=== PATIENT | female | born 1995 | race Caucasian/White ===

== ENCOUNTER 2018-10-17 16:45 | Inpatient (IN) | payer BC, OTHER ==
[~2018-10-17] VITALS: Ht 182.9 cm; Wt 83.7 kg
[2018-10-17 17:19] LABS: HEMATOCRIT 41.6 % (36.0-47.0); HEMOGLOBIN 14.4 g/dl (12.0-15.5); MEAN CORPUSCULAR HEMOGLOBIN 30.4 pg (27.0-33.0); MEAN CORPUSCULAR HGB CONC 34.6 g/dl (32.0-36.5); MEAN CORPUSCULAR VOLUME 87.8 fl (80.0-96.0); PLATELET COUNT, AUTOMATED 195 10^3/uL (150-450); RED BLOOD COUNT 4.74 10^6/uL (4.00-5.40); WHITE BLOOD COUNT 7.5 10^3/uL (4.0-10.0)
[2018-10-17] MEDS ORDERED: TRI-TAB PO (17:36)
[2018-10-17] MEDS ORDERED: LEXA1TAB2 PO (17:36)
[2018-10-17 17:45] LABS: AMPHETAMINES LEVEL URINE NEGATIVE (NEGATIVE); BARBITURATES URINE NEGATIVE (NEGATIVE); BENZODIAZEPINES URINE NEGATIVE (NEGATIVE); CANNABINOIDS URINE NEGATIVE (NEGATIVE); COCAINE METABOLITE URINE NEGATIVE (NEGATIVE); HCG, SERUM QUALITATIVE NEGATIVE (NEGATIVE); METHADONE URINE NEGATIVE (NEGATIVE); OPIATES URINE NEGATIVE (NEGATIVE); PHENCYCLIDINE URINE NEGATIVE (NEGATIVE)
[2018-10-17 17:57] LABS: ACETAMINOPHEN LEVEL < 2.0 UG/ML (10.0-30.0); ALBUMIN 3.7 GM/DL (3.2-5.2); ALT/SGPT 19 U/L (12-78); BILIRUBIN,DIRECT 0.1 MG/DL (0.0-0.2); BILIRUBIN,TOTAL 0.2 MG/DL (0.2-1.0); BLOOD UREA NITROGEN 10 MG/DL (7-18); CALCIUM LEVEL 9.4 MG/DL (8.5-10.1); CARBON DIOXIDE LEVEL 27 MEQ/L (21-32); CHLORIDE LEVEL 109 MEQ/L (98-107); CREATININE FOR GFR 0.84 MG/DL (0.55-1.30); ETHYL ALCOHOL (ETHANOL) < 0.003 % (0.000-0.010); GLOMERULAR FILTRATION RATE > 60.0 (>60); GLUCOSE, FASTING 82 MG/DL (70-100); SALICYLATE LEVEL < 1.7 MG/DL (5.0-30.0); SODIUM LEVEL 143 MEQ/L (136-145); TOTAL PROTEIN 7.7 GM/DL (6.4-8.2)
[2018-10-17] MEDS ORDERED: MOM 30ML SUSPENSION UDC PO PRN (18:45)
[2018-10-17] MEDS ORDERED: traZODone 50 MG TAB PO PRN (18:45)
[2018-10-17] MEDS ORDERED: ACETAMINOPHEN TAB 650MG DOSE (2X325MG) PO PRN (18:45)
[2018-10-17] MEDS ORDERED: MAALOX 30 ML SUSP *UDC PO PRN (18:45)
[2018-10-17 19:02] VITALS: BP 127/73
[2018-10-18 06:00] VITALS: BP 103/57
[2018-10-18] MEDS: ESCITALOPRAM OXALATE 10 MG TAB (LEXAPRO) PO SCH (08:10)
[2018-10-18] MEDS: DIVALPROEX 250 MG TAB PO SCH ×2 (10:57→21:26)
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
--- NOTE | 2018-10-18 14:04 | REP ---
Clinical: Foreign body. Technique: AP and lateral views of the left foot. Findings: Osseous structures and joint spaces are intact and normal. The soft tissues are unremarkable. No subcutaneous emphysema or foreign body identified. Impression: Normal examination. No foreign body identified. Electronically Signed by Matt Bolivar MD 10/18/2018 01:03 P
--- NOTE | 2018-10-18 15:59 | HPEPDOC ---
General Date of Admission Oct 17, 2018 at 18:34 Date of Service: Oct 18, 2018 Chief Complaint The patient is a 23-year-old female admitted with a reason for visit of Unspecified Depressive D/O. Source: Patient, Old records Exam Limitations: No limitations Severity: Mild History of Present Illness 23 year old female with PMH of Asthma, anxiety admitted to the Psych service for depression with suicidal ideas, aggressive behavior and generalized anxiety. I am seeing her for medical history and physical . She denied any chest pain, cough or sob , denied any abdominal pain , nausea or vomiting or diarrhea, denied any fever or chills. She did say she stepped on a piece of glass with her left foot about a week ago. Today she s complaining of some soreness at the bottom of her left foot near the heel, about 1/10 in intensity, no radiation, dull aching in nature mainly feels when she puts pressure on that foot. Home Medications Scheduled Escitalopram Oxalate (Lexapro) 20 Mg Tablet, 20 MG PO DAILY, (Reported) Norgestimate-Ethinyl Estradiol (Tri-Sprintec Tablet) 1 Each Tablet, 1 TAB PO DAILY, (Reported) Allergies Coded Allergies: No Known Allergies (Verified , 07/06/07) Past Medical History Medical History Asthma, Anxiety and depression Surgical History None Family History Significant Family History: Heart disease (father irregular heart beat. ) Social History * Smoker: Denies Alcohol: Denies Drugs: marijuana A-FIB/CHADSVASC A-FIB History Current/History of A-Fib/PAF?: No Review of Systems Constitutional: Denies: Chills, Fever, Night Sweats Eyes: Denies: Pain, Vision change ENT: Denies: Head Aches, Ear Pain, Dysphagia Skin: Denies: Rash, Lesions, Breakdown Pulmonary: Denies: Dyspnea, Cough Cardiovascular: Denies: Chest Pain, Palpitations, Orthopnea, Paroxysmal Noc. Dyspnea, Edema, Lt Headedness, Other Symptoms Gastrointestinal: Denies: Nausea, Vomiting, Abdominal Pain, Diarrhea Genitourinary: Denies: Dysuria, Frequency, Incontinence, Retention Hematologic: Denies: Bruising, Bleeding Excessively Musculoskeletal: Reports: Foot Pain; Denies: Neck Pain, Back Pain, Joint Pain, Muscle Pain, Spasms Physical Examination General Exam: Positive: Alert, No Acute Distress Eye Exam: Positive: PERRLA, Conjunctiva & lids normal, EOMI; Negative: Sclera icteric ENT Exam: Positive: Atraumatic, Mucous membr. moist/pink, Pharynx Normal Neck Exam: Positive: Supple; Negative: JVD, thyromegaly Chest Exam: Positive: Clear to auscultation, Normal air movement Heart Exam: Positive: Rate Normal, Regular Rhythm, Normal S1, Normal S2; Negative: Murmurs, Rubs Abdomen Exam: Positive: Normal bowel sounds, Soft; Negative: Tenderness, Hepatospenomegaly Extremity Exam: Positive: Normal pulses; Negative: Clubbing, Cyanosis, Edema Skin Exam: Positive: Other skin issue (left foot planter aspect area of hardness with minor erythema surrounding it on the lateral side just in front of the heel at the region where she stepped on glass.) Vital Signs Vital Signs Date Time Temp Pulse Resp B/P (MAP) Pulse Ox O2 Delivery O2 Flow Rate FiO2 10/18/18 06:00 98.7 65 12 103/57 (72) 10/17/18 16:46 99 Room Air Laboratory Data Labs 24H Laboratory Tests 2 10/17/18 17:03: Nucleated Red Blood Cells % (auto) 0.0, Anion Gap 7L, Glomerular Filtration Rate > 60.0, Calcium Level 9.4, Aspartate Amino Transf (AST/SGOT) 11, Alanine Amino transferase (ALT/SGPT) 19, Alkaline Phosphatase 60, Total Bilirubin 0.2, Direct Bilirubin 0.1, Total Protein 7.7, Albumin 3.7, Albumin/Globulin Ratio 0.93L, Thyroid Stimulating Hormone (TSH) 1.410, Human Chorionic Gonadotropin, Qual NEGATIVE, Salicylates Level < 1.7L, Urine Amphetamines Screen NEGATIVE, Urine Benzodiazepines Screen NEGATIVE, Urine Opiates Screen NEGATIVE, Urine Methadone Screen NEGATIVE, Acetaminophen Level < 2.0L, Urine Barbiturates Screen NEGATIVE, Urine Phencyclidine Screen NEGATIVE, Urine Cocaine Metabolite Screen NEGATIVE, Urine Cannabinoids Screen NEGATIVE, Ethyl Alcohol Level < 0.003 CBC/BMP Laboratory Tests 10/17/18 17:03 Red Blood Count 4.74, Mean Corpuscular Volume 87.8, Mean Corpuscular Hemoglobin 30.4, Mean Corpuscular Hemoglobin Concent 34.6, Red Cell Distribution Width 12.2 Assessment/Plan 23 year old female with PMH of asthma and anxiety admitted to the Psych service for depression with suicidal ideas, aggressive behavior and generalized anxiety. I am seeing her for medical history and physical . She stepped on a piece of glass with her left foot about a week ago. Asthma no exacerbation will make her inhaler available Foreign body in left foot Xray of the foot did not reveal any foreign body. she stepped on a piece of glass. Depression./Anxiety as per psychiatry DVT prophylaxis not needed as frequently ambulatory There are no active medical issues at this time. Please reconsult us if needed Plan / VTE VTE Prophylaxis Ordered?: No SHERON HERNANDEZ MD Oct 18, 2018 11:33
[2018-10-18] MEDS: [UNRECOGNIZED DRUG - OTHER] PO SCH (16:12)
[2018-10-18 18:08] VITALS: BP 119/81
[2018-10-19 06:00] VITALS: BP 98/57
[2018-10-19] MEDS: [UNRECOGNIZED DRUG - OTHER] PO SCH (08:13)
[2018-10-19] MEDS: ESCITALOPRAM OXALATE 10 MG TAB (LEXAPRO) PO SCH (08:13)
[2018-10-19] MEDS: DIVALPROEX 250 MG TAB PO SCH (08:13)
[2018-10-19] MEDS: hydrOXYzine 25 MG TAB PO PRN ×2 (10:27→19:42)
--- NOTE | 2018-10-19 12:21 | MHIPNPDOC ---
[facility] Progress Note Progress Note Inpatient Progress Note Cristobal Noonan Female Date of : N/A Date of Service: 10/19/2018 History of Present Illness The patient is a 23-year-old woman who presented over the weekend with significant dysregulation in her mood as well as homicidal thoughts towards others around her. She has a history of reported mood variation that is possibly bipolar with no significant psychiatric treatment in the past. Interval History The patient is met with today where she describes that she is feeling no better on the Depakote and that she had been on Lexapro prior. She notes that her mood variation is a significant problem for her at home as she will alternate moods over several days at a time where she notes her boyfriend is concerned about her safety around others. She has had no issues on the unit as of yet. She has been attending groups relatively regularly. Review Of Systems As above. Psychotherapy None on this visit. Vital Signs Reviewed. Mental Status Examination General: Well dressed with good hygiene Speech: Spontaneous and fluid Thought processes: Linear and logical MSK: Smooth and coordinated gait, no signs of tremors or involuntary orofacial movements Thought content: Future orientated Abstract reasoning, and computation: Intact Description of associations: Intact Description of abnormal or psychotic thoughts: Admits to suicidal thoughts. Denies homicidal ideation. Denies auditory or visual hallucinations. Does not appear to be responding to internal stimuli and does not appear to be endorsing any bizarre or paranoid ideation. Judgment: Poor Insight: Poor Orientation: Alert and orientated 3 Cognition: Grossly normal Recent and remote memory: Intact Attention span and concentration: Intact Fund of knowledge: Adequate Mood: "Fine" Affect: Anxious with a constricted range. Diagnoses Bipolar disorder, unspecified. Borderline personality disorder. Assessment and Plan The patient is a 23-year-old woman with no significant past psychiatric history presents due to secondary mood variation, it is unclear whether bipolar or borde rline. She will likely need an effective mood stabilizer. Depakote at this time is problematic. Discussed the risks, benefits and potential side effects of treatment with Depakote versus Abilify as well as informed her of potential teratogenic effects with Depakote. The patient has elected to start Abilify and discontinue Depakote at this time. Discontinue Depakote and start Abilify 2.5 mg mg daily. Continue home antidepressant at current dose. If the patient does not continue to improve, the antidepressant could be a potential cause for inducing a mixed episode which is not entirely clear at this time. Disposition The patient will need further inpatient admission in order to treat her extreme mood variation and risk for suicide. Time Spent 15 minutes [id number]. Vital Signs Vital Signs Date Time Temp Pulse Resp B/P (MAP) Pulse Ox O2 Delivery O2 Flow Rate FiO2 10/19/18 06:00 98.7 74 16 98/57 (71) 10/17/18 16:46 99 Room Air Current Medications Current Medications Acetaminophen (Tylenol Tab) 650 mg Q6HP PRN PO HEADACHE or DISCOMFORT; Start 10/17/18 at 18:45 Al Hydrox/Mg Hydrox/Simethicone (Mylanta) 30 ml Q4HP PRN PO HEARTBURN/INDIGESTION; Start 10/17/18 at 18:45 Divalproex Sodium (Depakote) 250 mg BID PO Last administered on 10/19/18 08:13; Start 10/18/18 at 09:00 Escitalopram Oxalate (Lexapro) 20 mg DAILY PO Last administered on 10/19/18 08:13; Start 10/18/18 at 09:00 Home Med (Med Rec Complete!) ASDIRECTED XX ; Start 10/17/18 at 18:30; Stop 10/17/18 at 18:33; Status DC Hydroxyzine HCl (Atarax) 25 mg Q6HP PRN PO ANXIETY Last administered on 10/19/18at 10:27; Start 10/18/18 at 11:15 Magnesium Hydroxide (Milk Of Magnesia) 30 ml DAILYPRN PRN PO CONSTIPATION; Start 10/17/18 at 18:45 Miscellaneous (Unresolved Patient Own Med Order) SEE LABEL COMMENTS DAILY XX ; Start 10/18/18 at 09:00; Stop 10/18/18 at 12:38; Status DC Patient Own Medication (Patient'S Own Med) tri-spirintec tablet take 1 tab... DAILY PO Last administered on 10/19/18 08:13; Start 10/18/18 at 09:00 Trazodone HCl (Desyrel) 50 mg QHSP PRN PO INSOMNIA Last administered on 10/18/18at 21:26; Start 10/17/18 at 18:45 Allergies Coded Allergies: No Known Allergies (Verified , 07/06/07) LESIA PRINGLE DO Oct 19, 2018 12:21
[2018-10-19 18:00] VITALS: BP 109/60
[2018-10-20 06:43] VITALS: BP 108/65
[2018-10-20] MEDS: [UNRECOGNIZED DRUG - OTHER] PO SCH (08:22)
[2018-10-20] MEDS: PILL CUTTER 1 EACH XX PRN (08:23)
[2018-10-20] MEDS: ESCITALOPRAM OXALATE 10 MG TAB (LEXAPRO) PO SCH (08:23)
[2018-10-20] MEDS: hydrOXYzine 25 MG TAB PO PRN ×2 (10:22→17:15)
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
[2018-10-20 18:00] VITALS: BP 105/56
[2018-10-21 06:49] VITALS: BP 106/71
[2018-10-21] MEDS: ESCITALOPRAM OXALATE 10 MG TAB (LEXAPRO) PO SCH (08:36)
[2018-10-21] MEDS: PILL CUTTER 1 EACH XX PRN (08:36)
[2018-10-21] MEDS: [UNRECOGNIZED DRUG - OTHER] PO SCH (08:36)
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
[2018-10-21 18:00] VITALS: BP 127/62
[2018-10-21] MEDS: hydrOXYzine 25 MG TAB PO PRN (21:15)
[2018-10-22 06:48] VITALS: BP 99/56
[2018-10-22] MEDS: PILL CUTTER 1 EACH XX PRN (08:10)
[2018-10-22] MEDS: hydrOXYzine 25 MG TAB PO PRN (08:10)
[2018-10-22] MEDS: [UNRECOGNIZED DRUG - OTHER] PO SCH (08:10)
[2018-10-22] MEDS: ESCITALOPRAM OXALATE 10 MG TAB (LEXAPRO) PO SCH (08:11)
[2018-10-22] MEDS ORDERED: TRAZ-252 PO (08:54)
[2018-10-22] MEDS ORDERED: ABIL1TAB11 PO (08:54)
[2018-10-22] MEDS ORDERED: LEXA1TAB2 PO (08:54)
[2018-10-22] MEDS ORDERED: HYDR-3363 PO (08:54)
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
== END 2018-10-22 13:00 | disposition home or self-care (01) | DRG 751 ==
LOC: M ED 16:45 → M ED INP 18:34 → M PSY 18:55
PROVIDERS: ADMIT Psychiatry & Neurology Psychiatry; ATTEND Psychiatry & Neurology Psychiatry
DX: F32.2 Major depressive disorder, single episode, severe without psychotic features (principal); F60.3 Borderline personality disorder; F41.0 Panic disorder [episodic paroxysmal anxiety]; F43.10 Post-traumatic stress disorder, unspecified; Z62.810 Personal history of physical and sexual abuse in childhood; J45.909 Unspecified asthma, uncomplicated; Z79.899 Other long term (current) drug therapy

== ENCOUNTER 2018-11-18 14:03 | Emergency (ER) | payer BC ==
[~2018-11-18] VITALS: Ht 182.9 cm; Wt 86.6 kg
[~2018-11-18 14:03] MED LIST changes: -KETO10TAB PO
[2018-11-18 15:31] LABS: BASO # 0.1 10^3/uL (0.0-0.2); BASO % 0.7 % (0.0-1.0); EOS # 0.3 10^3/uL (0.0-0.50); EOS % 3.3 % (0.0-3.0); HEMATOCRIT 41.6 % (36.0-47.0); HEMOGLOBIN 14.1 g/dl (12.0-15.5); LYMPH % 22.8 % (24.0-44.0); MEAN CORPUSCULAR HEMOGLOBIN 30.6 pg (27.0-33.0); MEAN CORPUSCULAR HGB CONC 33.9 g/dl (32.0-36.5); MEAN CORPUSCULAR VOLUME 90.2 fl (80.0-96.0); MONO # 0.7 10^3/uL (0.0-0.8); MONO % 7.8 % (0.0-5.0); NEUTROPHILS # 5.8 10^3/uL (1.8-7.7); NEUTROPHILS % 65.1 % (36.0-66.0); PLATELET COUNT, AUTOMATED 191 10^3/uL (150-450); RED BLOOD COUNT 4.61 10^6/uL (4.00-5.40); WHITE BLOOD COUNT 8.9 10^3/uL (4.0-10.0)
[2018-11-18 15:48] LABS: BLOOD UREA NITROGEN 9 MG/DL (7-18); CALCIUM LEVEL 8.7 MG/DL (8.5-10.1); CARBON DIOXIDE LEVEL 30 MEQ/L (21-32); CHLORIDE LEVEL 107 MEQ/L (98-107); CREATININE FOR GFR 0.68 MG/DL (0.55-1.30); GLOMERULAR FILTRATION RATE > 60.0 (>60); GLUCOSE, FASTING 71 MG/DL (70-100); POTASSIUM SERUM 3.6 MEQ/L (3.5-5.1); SODIUM LEVEL 141 MEQ/L (136-145)
[2018-11-18 16:29] LABS: HCG, SERUM QUANTITATIVE < 1.0 MIU/ML
[2018-11-18] MEDS ORDERED: KETO10TAB PO (16:40)
[2018-11-18 16:44] VITALS: BP 108/56
--- NOTE | 2018-11-19 07:37 | REP ---
PELVIC ULTRASOUND: Real-time sonographic evaluation of the pelvis performed utilizing transabdominal and endovaginal technique. Urinary bladder is collapsed. Uterus measures 8.8 x 3.9 x 5.2 cm. Endometrial thickness is 3 mm. There is no endometrial fluid collection. The right ovary measures 3.7 x 1.5 x 2.6 cm. The left ovary is enlarged measuring 5.5 x 3.8 x 4.5 cm. There is a left ovarian cyst, 5.0 x 3.6 x 3.8 cm. There is no evidence of ovarian torsion. There is no free fluid. IMPRESSION: Left ovarian cyst measures 5 cm in maximum diameter. No torsion or free fluid. Followup ultrasound in 2 months. Electronically Signed by Home Munoz MD 11/19/2018 10:10 A
--- NOTE | 2018-11-19 14:50 | ED PDOC ---
Post-Departure Follow-Up dr degroot faxed formal report of pelvic us for fu Sachi Zafar MD Nov 19, 2018 14:50
== END 2018-11-18 16:45 | disposition home or self-care (01) ==
LOC: M ED 14:03
DX: N83.202 Unspecified ovarian cyst, left side (principal); F31.9 Bipolar disorder, unspecified; F41.9 Anxiety disorder, unspecified; F60.9 Personality disorder, unspecified; Z79.899 Other long term (current) drug therapy

== ENCOUNTER → 2018-11-18 | Outpatient (REF) | payer BC ==
[~2018-11-18] MED LIST: ABIL1TAB11 PO; HYDR-3363 PO; KETO10TAB PO; LEXA1TAB2 PO; TRAZ-252 PO; TRI-TAB PO
[2018-11-18 22:49] LABS: CHLAMYDIA DNA AMPLIFICATION NEGATIVE (NEGATIVE); GC DNA AMPLIFICATION NEGATIVE (NEGATIVE)
== END ==
LOC: M SFHCLERA 14:01
PROVIDERS: ATTEND Physician Assistant
DX: R10.32 Left lower quadrant pain (principal)

== ENCOUNTER 2018-12-12 15:50 | Emergency (ER) | payer BC ==
[~2018-12-12] VITALS: Ht 182.9 cm; Wt 88.6 kg
[~2018-12-12 15:50] MED LIST changes: +KETO10TAB PO
[2018-12-12] MEDS ORDERED: ESCI10TA2 PO (16:42)
[2018-12-12] MEDS ORDERED: SERT25TA85 PO (16:43)
[2018-12-12] MEDS ORDERED: OXYC1TAB23 PO (16:44)
[2018-12-12 16:45] LABS: HEMATOCRIT 38.1 % (36.0-47.0); HEMOGLOBIN 13.2 g/dl (12.0-15.5); MEAN CORPUSCULAR HEMOGLOBIN 30.8 pg (27.0-33.0); MEAN CORPUSCULAR HGB CONC 34.6 g/dl (32.0-36.5); MEAN CORPUSCULAR VOLUME 88.8 fl (80.0-96.0); PLATELET COUNT, AUTOMATED 146 10^3/uL (150-450); RED BLOOD COUNT 4.29 10^6/uL (4.00-5.40)
[2018-12-12] MEDS ORDERED: AMOX500C PO (16:46)
[2018-12-12] MEDS ORDERED: VENTAER INH (16:50)
[2018-12-12 17:07] LABS: AMPHETAMINES LEVEL URINE NEGATIVE (NEGATIVE); BARBITURATES URINE NEGATIVE (NEGATIVE); BENZODIAZEPINES URINE NEGATIVE (NEGATIVE); CANNABINOIDS URINE NEGATIVE (NEGATIVE); COCAINE METABOLITE URINE NEGATIVE (NEGATIVE); METHADONE URINE NEGATIVE (NEGATIVE); OPIATES URINE NEGATIVE (NEGATIVE); PHENCYCLIDINE URINE NEGATIVE (NEGATIVE)
[2018-12-12 17:08] LABS: HCG, SERUM QUALITATIVE NEGATIVE (NEGATIVE)
[2018-12-12 17:23] LABS: ACETAMINOPHEN LEVEL < 2.0 UG/ML (10.0-30.0); ALBUMIN 3.2 GM/DL (3.2-5.2); ALT/SGPT 66 U/L (12-78); BILIRUBIN,DIRECT 0.2 MG/DL (0.0-0.2); BILIRUBIN,TOTAL 0.5 MG/DL (0.2-1.0); BLOOD UREA NITROGEN 4 MG/DL (7-18); CALCIUM LEVEL 8.1 MG/DL (8.5-10.1); CARBON DIOXIDE LEVEL 27 MEQ/L (21-32); CHLORIDE LEVEL 105 MEQ/L (98-107); ETHYL ALCOHOL (ETHANOL) < 0.003 % (0.000-0.010); GLOMERULAR FILTRATION RATE > 60.0 (>60); GLUCOSE, FASTING 92 MG/DL (70-100); SALICYLATE LEVEL < 1.7 MG/DL (5.0-30.0); SODIUM LEVEL 139 MEQ/L (136-145); THYROID STIMULATING HORMONE 0.977 uIU/ML (0.358-3.740); TOTAL PROTEIN 6.9 GM/DL (6.4-8.2)
[2018-12-12] MEDS ORDERED: PERCOCET 5MG/325MG TAB PO ONE (18:30)
[2018-12-12] MEDS ORDERED: ESCITALOPRAM OXALATE 10 MG TAB (LEXAPRO) PO SCH (21:00)
[2018-12-12] MEDS ORDERED: SERTRALINE HCL 25 MG TABLET PO SCH (21:00)
[2018-12-12] MEDS ORDERED: AMOXICILLIN 500 MG CAP PO SCH (21:00)
[2018-12-12 23:50] VITALS: BP 111/59
[2018-12-13] MEDS ORDERED: AMOXICILLIN 500 MG CAP PO SCH (09:00)
== END 2018-12-12 23:53 | disposition short-term general hospital (02) ==
LOC: M ED 15:50
DX: R45.851 Suicidal ideations (principal); F33.9 Major depressive disorder, recurrent, unspecified; F41.9 Anxiety disorder, unspecified; F60.3 Borderline personality disorder; Z79.899 Other long term (current) drug therapy
CPT/HCPCS: 36415; 80048; 80076; 80307; 84443; 84703; 85027; 99284; G0480

== ENCOUNTER → 2019-02-02 | Outpatient (REF) | payer BC ==
[~2019-02-02] MED LIST changes: +AMOX500C PO; +ESCI10TA2 PO; +OXYC1TAB23 PO; +SERT25TA85 PO; +VENTAER INH
== END ==
LOC: M SFHCWAGY 09:05
PROVIDERS: ATTEND Nurse Practitioner Women's Health
DX: Z12.4 Encounter for screening for malignant neoplasm of cervix (principal)

== ENCOUNTER → 2019-02-02 | Outpatient (REF) | payer BC ==
[2019-02-02 14:00] LABS: CHLAMYDIA DNA AMPLIFICATION NEGATIVE (NEGATIVE); GC DNA AMPLIFICATION NEGATIVE (NEGATIVE)
== END ==
LOC: M SFHCWAGY 11:23
PROVIDERS: ATTEND Nurse Practitioner Women's Health
DX: Z11.3 Encounter for screening for infections with a predominantly sexual mode of transmission (principal)

== ENCOUNTER → 2019-02-17 | Outpatient (CLI) | payer BC ==
--- NOTE | 2019-02-18 09:37 | REP ---
Clinical: Follow-up left ovarian cyst. Comparison: 11/18/2018 . Technique: Transabdominal pelvic ultrasound followed by transvaginal examination for better evaluation of the endometrium and adnexa with color Doppler evaluation of the ovaries. Findings: Bladder is unremarkable and measures 8.9 x 8.6 x 6.4 cm . Normal anteverted uterus measures 8.5 x 2.9 x 4.7 cm . The endometrial complex measures 7.0 mm thickness. No discrete uterine or endometrial abnormalities are appreciated. Bilateral ovaries are normal in appearance and vascularity without evidence for torsion. Right ovary measures 4.5 x 2.3 x 3.8 cm with 2 cm cyst ; R I = 0.52 . Left ovary measures 3.5 x 2.2 x 2.5 cm with 1.1 cm cyst ; R I = 0.61 . No pelvic fluid or adnexal mass lesion. . Impression: 1. Essentially normal appearance to the uterus with physiologic cystic changes to the bilateral ovaries. The previously noted 5 cm left ovarian cyst has likely resolved. Electronically Signed by Matt Bolivar MD 02/18/2019 09:28 A
== END ==
LOC: M RAD 14:48
PROVIDERS: ATTEND Nurse Practitioner Women's Health
DX: N83.202 Unspecified ovarian cyst, left side (principal)

== ENCOUNTER 2019-04-09 15:55 | Emergency (ER) | payer BC ==
[~2019-04-09] VITALS: Ht 182.9 cm; Wt 90.9 kg
[2019-04-09] MEDS ORDERED: ARIP1TAB6 PO (16:17)
[2019-04-09 18:22] LABS: HEMOGLOBIN 13.1 g/dl (12.0-15.5); MEAN CORPUSCULAR HGB CONC 33.6 g/dl (32.0-36.5); MEAN CORPUSCULAR VOLUME 89.4 fl (80.0-96.0); PLATELET COUNT, AUTOMATED 180 10^3/uL (150-450); RED BLOOD COUNT 4.36 10^6/uL (4.00-5.40)
[2019-04-09 18:48] LABS: AMPHETAMINES LEVEL URINE NEGATIVE (NEGATIVE); BARBITURATES URINE NEGATIVE (NEGATIVE); BENZODIAZEPINES URINE NEGATIVE (NEGATIVE); CANNABINOIDS URINE POSITIVE (NEGATIVE); COCAINE METABOLITE URINE NEGATIVE (NEGATIVE); METHADONE URINE NEGATIVE (NEGATIVE); OPIATES URINE NEGATIVE (NEGATIVE); PHENCYCLIDINE URINE NEGATIVE (NEGATIVE)
[2019-04-09 18:53] LABS: HCG, SERUM QUALITATIVE NEGATIVE (NEGATIVE)
[2019-04-09 19:08] LABS: ACETAMINOPHEN LEVEL < 2.0 UG/ML (10.0-30.0); ALBUMIN 3.2 GM/DL (3.2-5.2); ALT/SGPT 25 U/L (12-78); BILIRUBIN,DIRECT < 0.1 MG/DL (0.0-0.2); BILIRUBIN,TOTAL 0.2 MG/DL (0.2-1.0); BLOOD UREA NITROGEN 12 MG/DL (7-18); CALCIUM LEVEL 8.3 MG/DL (8.5-10.1); CARBON DIOXIDE LEVEL 26 MEQ/L (21-32); CHLORIDE LEVEL 106 MEQ/L (98-107); ETHYL ALCOHOL (ETHANOL) < 0.003 % (0.000-0.010); GLOMERULAR FILTRATION RATE > 60.0 (>60); GLUCOSE, FASTING 104 MG/DL (70-100); POTASSIUM SERUM 3.6 MEQ/L (3.5-5.1); SALICYLATE LEVEL < 1.7 MG/DL (5.0-30.0); SODIUM LEVEL 140 MEQ/L (136-145); TOTAL PROTEIN 6.8 GM/DL (6.4-8.2)
[2019-04-10 04:01] VITALS: BP 115/72
--- NOTE | 2019-04-11 15:17 | ECGEPIP ---
[facility] - ED Test Date: 2019-04-09 Pat Name: KRISTEN TORRE Department: Room: - Gender: Female [employer]itting [employer] Fe[employer]: [place] : [id number] Requested By: JAVIER COVARRUBIAS Order Number: [id number] Reading MD: Kai Gilman Measurements Intervals [place] Rate: 75 P: 61 CA: 143 QRS: 92 QRSD: 99 T: 44 QT: 374 QTc: 420 Interpretive Statements SINUS RHYTHM BORDERLINE RIGHT AXIS DEVIATION POSSIBLE INCOMPLETE RIGHT BUNDLE BRANCH BLOCK NO PRIORS FOR COMPARISON Electronically Signed on 04-11-2019 15:16:50 EST by Kai Gilman
== END 2019-04-10 04:03 | disposition short-term general hospital (02) ==
LOC: M ED 15:55
DX: F43.0 Acute stress reaction (principal); R45.851 Suicidal ideations; Z79.899 Other long term (current) drug therapy
CPT/HCPCS: 36415; 80048; 80076; 80307; 84443; 84703; 85027; 93005; 99284; G0480

== ENCOUNTER 2019-08-13 10:47 | Inpatient (IN) | payer BC ==
[~2019-08-13] VITALS: Ht 182.9 cm; Wt 102.9 kg
[~2019-08-13 10:47] MED LIST changes: +ARIP1TAB6 PO
[2019-08-13] MEDS ORDERED: BUPR150T3 PO (10:57)
[2019-08-13] MEDS ORDERED: ARIP1TAB PO (10:57)
[2019-08-13 11:44] LABS: HEMATOCRIT 42.2 % (36.0-47.0); HEMOGLOBIN 14.4 g/dl (12.0-15.5); MEAN CORPUSCULAR HGB CONC 34.1 g/dl (32.0-36.5); MEAN CORPUSCULAR VOLUME 90.9 fl (80.0-96.0); PLATELET COUNT, AUTOMATED 205 10^3/uL (150-450); RED BLOOD COUNT 4.64 10^6/uL (4.00-5.40); WHITE BLOOD COUNT 6.5 10^3/uL (4.0-10.0)
[2019-08-13 12:08] LABS: HCG, SERUM QUALITATIVE NEGATIVE (NEGATIVE)
[2019-08-13 12:13] LABS: AMPHETAMINES LEVEL URINE NEGATIVE (NEGATIVE); BARBITURATES URINE NEGATIVE (NEGATIVE); BENZODIAZEPINES URINE NEGATIVE (NEGATIVE); CANNABINOIDS URINE POSITIVE (NEGATIVE); COCAINE METABOLITE URINE NEGATIVE (NEGATIVE); METHADONE URINE NEGATIVE (NEGATIVE); OPIATES URINE NEGATIVE (NEGATIVE); PHENCYCLIDINE URINE NEGATIVE (NEGATIVE)
[2019-08-13 12:55] LABS: ACETAMINOPHEN LEVEL < 2.0 UG/ML (10.0-30.0); ALBUMIN 3.3 GM/DL (3.2-5.2); ALT/SGPT 20 U/L (12-78); BILIRUBIN,DIRECT < 0.1 MG/DL (0.0-0.2); BILIRUBIN,TOTAL 0.3 MG/DL (0.2-1.0); BLOOD UREA NITROGEN 10 MG/DL (7-18); CALCIUM LEVEL 8.8 MG/DL (8.5-10.1); CARBON DIOXIDE LEVEL 26 MEQ/L (21-32); CHLORIDE LEVEL 107 MEQ/L (98-107); CREATININE FOR GFR 0.93 MG/DL (0.55-1.30); ETHYL ALCOHOL (ETHANOL) < 0.003 % (0.000-0.010); GLOMERULAR FILTRATION RATE > 60.0 (>60); GLUCOSE, FASTING 76 MG/DL (70-100); POTASSIUM SERUM 4.3 MEQ/L (3.5-5.1); SALICYLATE LEVEL 4.7 MG/DL (5.0-30.0); SODIUM LEVEL 138 MEQ/L (136-145); TOTAL PROTEIN 7.2 GM/DL (6.4-8.2)
[2019-08-13] MEDS ORDERED: SULF1TAB93 PO (14:15)
[2019-08-13] MEDS ORDERED: MONO0.25 PO (14:15)
[2019-08-13] MEDS ORDERED: MAALOX 30 ML SUSP *UDC PO PRN (19:45)
[2019-08-13] MEDS ORDERED: ACETAMINOPHEN TAB 650MG DOSE (2X325MG) PO PRN (19:45)
[2019-08-13] MEDS ORDERED: MOM 30ML SUSPENSION UDC PO PRN (19:45)
[2019-08-13 20:32] VITALS: BP 126/70
[2019-08-13] MEDS ORDERED: buPROPion **XL** TABLET 150MG (WELLBUTRIN XL) PO ONE (21:45)
[2019-08-13] MEDS: traZODone 50 MG TAB PO PRN (21:54)
[2019-08-14 06:29] VITALS: BP 139/71
[2019-08-14] MEDS: ESCITALOPRAM OXALATE 10 MG TAB (LEXAPRO) PO SCH (08:16)
[2019-08-14] MEDS: MONO LINYAH PO SCH (08:16)
[2019-08-14] MEDS: buPROPion **XL** TABLET 150MG (WELLBUTRIN XL) PO SCH (08:16)
[2019-08-14] MEDS: BACTRIM 160MG/800MG DS TAB PO SCH ×2 (08:16→20:59)
[2019-08-14] MEDS: ARIPiprazole 10 MG TAB PO SCH (08:16)
[2019-08-14 16:26] VITALS: BP 123/65
--- NOTE | 2019-08-14 17:50 | HPEPDOC ---
General Date of Admission August 13, 2019 at 19:42 Date of Service: August 14, 2019 Attending Physician: ADRIANA BRONSON MD Chief Complaint The patient is a 24-year-old female admitted with a reason for visit of Unspecified Depressive Disorder. Source: Patient Exam Limitations: No limitations Timing/Duration: Week(s) (2) History of Present Illness 24 yo W with a history of depression who self presented to the ED after calling her mental health provider to report increase SI with plan to overdose on her medications and had started writing a suicide note. She reportedly had uptitration of her abilify and wellbutrin on 08/05. In the ED, she had no physical complaints, was hemodynamically stable and afebrile with a workup that revealed a normal CBC and BMP and tox screen that was positive for marijuana. She is now admitted to the [facility] for evaluation and treatment of her severe depression. -Of note patient has draining pilonidal cyst in gluteal cleft for which she was scheduled to see Dr. Dhillon in the outpatient setting. Depending on her length of stay would benefit from either a surgery consult for I&D or close follow up appointment with Dr. Dhillon's office at discharge. Home Medications Scheduled Aripiprazole (Aripiprazole) 10 Mg Tablet, 10 MG PO DAILY, (Reported) Bupropion Hcl (Bupropion Xl) 150 Mg Tab.er.24h, 150 MG PO DAILY, (Reported) Escitalopram Oxalate (Escitalopram Oxalate) 10 Mg Tablet, 10 MG PO DAILY, (Reported) Norgestimate-Ethinyl Estradiol ([place]-Linyah 28 Tablet) 1 Each Tablet, 1 TAB PO DAILY, (Reported) Sulfamethoxazole/Trimethoprim (Sulfamethoxazole-Tmp Ds Tablet) 1 Each Tablet, 1 TAB PO BID, (Reported) FILLED 08/09/19 FOR 10 DAYS Allergies Coded Allergies: No Known Allergies (Verified , 12/12/18) Past Medical History Medical History Depression, chart diagnosis of bipolar, ADD and anxiety disorder Family History Significant Family History: No pertinent family hx Social History * Smoker: Denies Alcohol: Denies Drugs: marijuana Recent Travel/Sick Contacts: Denies: Recent travel, Recent sick contacts Psychosocial History: Anxiety, Bipolar, Decreased mood, Depression, Suicidal thoughts A-FIB/CHADSVASC A-FIB History Current/History of A-Fib/PAF?: No Current PO Anticoag Therapy: No Age/Risk Factor Scoring CHADSVASC: CHADSVASC Response (Comments) Value Age Risk Factor Age < 65 years old 0 Gender Risk Factor Female 1 Hx of CHF No 0 Hx of HTN No 0 Hx of Stroke/TIA/or VTE No 0 Hx of Diabetes No 0 Hx of Vascular Disease No 0 Total 1 Treatment Treatment ordered: NONE Reason Anticoagulant not given: Not indicated/[id number] Review of Systems Constitutional: Denies: Chills, Fever, Night Sweats Eyes: Denies: Pain, Vision change ENT: Denies: Head Aches, Ear Pain, Dysphagia Skin: Denies: Rash, Lesions, Breakdown Pulmonary: Denies: Dyspnea, Cough Cardiovascular: Denies: Chest Pain, Palpitations, Orthopnea, Paroxysmal Noc. Dyspnea, Lt Headedness Gastrointestinal: Denies: Nausea, Vomiting, Abdominal Pain, Diarrhea Genitourinary: Denies: Dysuria, Frequency, Incontinence, Retention Hematologic: Denies: Bruising, Bleeding Excessively Endocrine: Denies: Polydipsia, Polyphagia, Polyuria, Heat Intolerance, Cold Intolerance, Other Endocrine Sx Musculoskeletal: Denies: Neck Pain, Back Pain, Joint Pain, Muscle Pain, Spasms Neurological: Denies: Weakness, Numbness, Change in speech, Confusion Psych: Reports: Anxiety, Depression, Thoughts of Self Harm Physical Examination General Exam: Positive: Alert, No Acute Distress, Other (obese) Eye Exam: Positive: PERRLA, Conjunctiva & lids normal, EOMI; Negative: Sclera icteric ENT Exam: Positive: Atraumatic, Mucous membr. moist/pink, Pharynx Normal Neck Exam: Positive: Supple; Negative: JVD, thyromegaly Chest Exam: Positive: Clear to auscultation, Normal air movement Heart Exam: Positive: Rate Normal, Regular Rhythm, Normal S1, Normal S2; Negative: Murmurs, Rubs Abdomen Exam: Positive: Normal bowel sounds, Soft; Negative: Tenderness, Hepatospenomegaly Extremity Exam: Positive: Normal pulses; Negative: Clubbing, Cyanosis, Edema Skin Exam: Positive: Nl turgor and temperature, Lesion (has gluteal cleft draining pilonidal cyst); Negative: Breakdown Neuro Exam: Positive: Normal Gait, Normal Speech, Cranial Nerves 3-12 NL, Reflexes 2+ Psych Exam: Positive: Mental status NL, Oriented x 3 Vital Signs Vital Signs Date Time Temp Pulse Resp B/P (MAP) Pulse Ox O2 Delivery O2 Flow Rate FiO2 08/14/19 09:19 Room Air 08/14/19 06:29 96.7 70 16 139/71 (93) 08/13/19 20:32 96 Laboratory Data Labs 24H Laboratory Tests 2 08/13/19 11:25: Nucleated Red Blood Cells % (auto) 0.0, Anion Gap 5L, Glomerular Filtration Rate > 60.0, Calcium Level 8.8, Total Bilirubin 0.3, Direct Bilirubin < 0.1, Aspartate Amino Transf (AST/SGOT) 8, Alanine Aminotransferase (ALT/SGPT) 20, Alkaline Phosphatase 82, Total Protein 7.2, Albumin 3.3, Albumin/Globulin Ratio 0.85L, Thyroid Stimulating Hormone (TSH) 1.370, Human Chorionic Gonadotropin, Qual NEGATIVE, Salicylates Level 4.7L, Urine Opiates Screen NEGATIVE, Urine Methadone Screen NEGATIVE, Acetaminophen Level < 2.0L, Urine Barbiturates Screen NEGATIVE, Urine Phencyclidine Screen NEGATIVE, Urine Amphetamines Screen NEGATIVE, Urine Benzodiazepines Screen NEGATIVE, Urine Cocaine Metabolite Screen NEGATIVE, Urine Cannabinoids Screen POSITIVEH, Ethyl Alcohol Level < 0.003 CBC/BMP Laboratory Tests 08/13/19 11:25 Assessment/Plan 24 yo W with a chart diagnosis of bipolar, anxiety, ADD and depression who is admitted to the [facility] for severe depression with intrusive suicide ideation with plan to overdose on her medications. She had a benign physical examination and lab evaluation was also within normal limits. At this time I will defer ev aluation and treatment of her depression with suicidal ideation to the primary team and will sign off. Plan / VTE VTE Prophylaxis Ordered?: No VTE Exclusion Mechanical Proph: Low Risk for VTE VTE Exclusion Pharmacological: At Low Risk for VTE ADRIANA BRONSON MD August 14, 2019 11:22
[2019-08-14] MEDS: traZODone 50 MG TAB PO PRN (21:43)
[2019-08-15 06:41] VITALS: BP 125/76
[2019-08-15] MEDS: ESCITALOPRAM OXALATE 10 MG TAB (LEXAPRO) PO SCH (08:45)
[2019-08-15] MEDS: BACTRIM 160MG/800MG DS TAB PO SCH ×2 (08:45→20:08)
[2019-08-15] MEDS: MONO LINYAH PO SCH (08:45)
[2019-08-15] MEDS: buPROPion **XL** TABLET 150MG (WELLBUTRIN XL) PO SCH (08:45)
[2019-08-15] MEDS: ARIPiprazole 10 MG TAB PO SCH (08:45)
[2019-08-15] MEDS ORDERED: PILL CUTTER 1 EACH XX PRN (11:30)
[2019-08-15] MEDS: LORazepam 1 MG TAB PO PRN ×2 (12:54→20:08)
--- NOTE | 2019-08-15 15:30 | MHHPE ---
DATE OF ADMISSION: 08/13/2019 VITAL SIGNS: Blood pressure 123/65, pulse 81, temperature 97.4. This is a telemedicine video assessment. The patient is seen in the presence of staff. CHIEF COMPLAINT: Feels suicidal. SUBJECTIVE: She is 24 years old, has a history of mood-related difficulties, and has had several hospitalizations. She was last here last October and most recently was admitted to [facility] sometime in March. Says she carries a diagnosis of bipolar disorder and that she was diagnosed with such last year. Is currently on Lexapro 10 mg daily; (has been on it for a number of years), Abilify 10 mg daily (has been on this for several months, says this was increased from 5 mg to 10 just a few days ago), and Wellbutrin, which was, at the same time, increased from 100 mg to 150 mg daily. She says that was done to counteract the side effects of Abilify, which she says have led to her putting on weight, about 50 pounds in the course of the last several months. She is seen at outpatient behavioral health at [place]. Says has been feeling increasingly depressed, particularly since the COVID-19 crisis, the confinements, the restrictions, and this is made worse by her losing her job a few weeks ago. Says has felt increasingly depressed and suicidal. Had wanted to overdose, as came to the hospital. Says if she had the opportunity, if she was out of our facility, she would attempt taking her life. Says stays on her own. Is in touch with her mother. Says they are generally close. PAST PSYCHIATRIC HISTORY: As indicated above. Please refer to previous summaries, including Dr. Rodríguez summary from the last year. She was most recently hospitalized at [facility]. BACKGROUND HISTORY: Please refer to the previous summaries. MENTAL STATUS EXAMINATION: She is neat. She is cooperative. Appears well nourished. No agitation. No psychomotor retardation. No abnormal movements noted. She is coherent. Affect is restricted in range. Has suicidal thoughts. Has plans, in terms of overdosing, but not in the hospital. No evidence of any psychosis. Cognition grossly intact. Judgment and insight are compromised. Intellect is average. INVESTIGATIONS: These show a complete blood count within normal limits, a metabolic profile within normal limits essentially except for the anion gap at 5 and an albumin/globulin ratio at 0.85. Urine toxicology is positive for cannabinoids. ASSESSMENT: 1. Bipolar disorder, current episode depressed, moderate, without psychotic features. 2. Current COVID-19 crisis and its effects. 3. Loss of employment. Significantly depressed, suicidal, with plans. Stressed because of the change in conditions locally and its economic impact as well. PLAN: She is admitted to inpatient psychiatric unit, placed on relevant precautions. We will look at obtaining collateral information. She will receive a medicine consult if indicated. She is encouraged to participate in activities in the unit. Given mood instability and her current concerns, she says that she does not wish to take the medicine she is on. The rationale for doing so is discussed. Both Abilify and Wellbutrin went up a few days ago at the same time. We discussed this, and I would suggest that the doses are lowered a bit, Abilify to 7.5 mg at night and Wellbutrin at 100 mg daily. This would minimize the side effects. It is also preferable to consider, at some point, tapering and discontinuing Lexapro, as antidepressants are not necessarily useful in someone with bipolar disorder. Psychosocial factors also have a major impact . She will be discharged with followup once she is stable. I would anticipate a 5-7 day stay. The assessment took 30 minutes.
[2019-08-15 16:21] VITALS: BP 131/81
[2019-08-15] MEDS: traZODone 50 MG TAB PO PRN (23:42)
[2019-08-16 06:35] VITALS: BP 148/66
[2019-08-16] MEDS: LORazepam 1 MG TAB PO PRN ×2 (08:02→16:18)
[2019-08-16] MEDS: ESCITALOPRAM OXALATE 10 MG TAB (LEXAPRO) PO SCH (08:02)
[2019-08-16] MEDS: BACTRIM 160MG/800MG DS TAB PO SCH ×2 (08:02→21:16)
[2019-08-16] MEDS: buPROPion (WELLBUTRIN SR) 100 MG SR TAB PO SCH (08:02)
[2019-08-16] MEDS: MONO LINYAH PO SCH (08:05)
[2019-08-16] MEDS ORDERED: ARIPiprazole 15 MG TAB (AbiLIFY) PO SCH (09:00)
--- NOTE | 2019-08-16 09:12 | MHIPNPDOC ---
[facility] Progress Note Progress Note Inpatient Progress Note Cristobal Noonan Female Date of : N/A Date of Service: 08/16/2019 History of Present Illness The patient, a 24-year-old woman presents after increasing depression especially after she had had her home medications increased. Interval History The patient is met with today. She reports she is doing somewhat better, but still doesn't feel ready to return home. She continues on a voluntary status. She reports that her increased Abilify and Wellbutrin haven't been as helpful for her mood. She has been amenable to treatment. No behavior problems over the weekend. She reports worries that the Abilify will continue to cause her to gain weight and is interested in alternatives. Review Of Systems General: Denies fever or appetite changes Cardiovascular: Denies Chest pain or palpations GI: Denies Nausea, vomiting, or bowel changes Respiratory: Denies shortness of breath or cough Neuro: Denies dizziness, tremors Derm: Denies any rashes or pruritus : Denies any dysuria or urinary problems MSK: Denies any muscle tightness or stiffness HEENT: Denies any vision changes or headaches Psychotherapy None on this visit. Vital Signs Reviewed. Mental Status Examination General: Well dressed with good hygiene Speech: Spontaneous and fluid Thought processes: Linear and logical MSK: Smooth and coordinated gait, no signs of tremors or involuntary orofacial movements Thought content: Some mild hopelessness. Abstract reasoning, and computation: Intact Description of associations: Intact Description of abnormal or psychotic thoughts: Denies any suicidal or homicidal ideation. Denies any auditory or visual hallucinations. Does not appear to be responding to internal stimuli. Does not appear to be endorsing any bizarre or paranoid ideation. Judgment: fair Insight: fair Orientation: Alert and orientated 3 Cognition: Grossly normal Recent and remote memory: Intact Attention span and concentration: Intact Fund of knowledge: Adequate Mood: "okay" Affect: Dysthymic with a constricted range. Diagnoses Unspecified depressive disorder. MDD versus adjustment. Assessment and Plan Unspecified depressive disorder: Discontinue Abilify. Continue bupropion augment with sertraline 25 mg daily. Discussed the risks, benefits potential side effects with patient as well as alternatives. Disposition Patient will continue on a voluntary status for continued care. She reports that she still wishes to continue for maximum benefit and reports that her depression still is crippling at this time. Time Spent 15 minutes Friday Vital Signs Vital Signs Date Time Temp Pulse Resp B/P (MAP) Pulse Ox O2 Delivery O2 Flow Rate FiO2 08/16/19 06:35 99.2 89 18 148/66 (93) 08/15/19 08:34 Room Air 08/15/19 06:41 97 Current Medications Current Medications Medications (Trade) Dose Ordered Sig/Juan Route PRN Reason Start Time Stop Time Status Last Admin Dose Admin Acetaminophen (Tylenol Tab) 650 mg Q6HP PRN PO HEADACHE or DISCOMFORT 08/13/19 19:45 Al Hydrox/Mg Hydrox/Simethicone (Mylanta) 30 ml Q4HP PRN PO HEARTBURN/INDIGESTION 08/13/19 19:45 Aripiprazole (AbiLIFY) 7.5 mg QAM PO 08/16/19 09:00 08/16/19 08:02 Aripiprazole (AbiLIFY) 10 mg DAILY PO 08/14/19 09:00 08/15/19 11:23 DC 08/15/19 08:45 Bupropion HCl (Wellbutrin Sr) 100 mg DAILY PO 08/16/19 09:00 08/16/19 08:02 Bupropion HCl (Wellbutrin Xl) 150 mg DAILY PO 08/14/19 09:00 08/15/19 11:23 DC 08/15/19 08:45 Escitalopram Oxalate (Lexapro) 10 mg DAILY PO 08/14/19 09:00 08/16/19 08:02 Home Med (Med Rec Complete!) ASDIRECTED XX 08/13/19 14:15 08/13/19 14:18 DC Lorazepam (Ativan) 1 mg Q6HP PRN PO ANXIETY 08/15/19 11:45 08/17/19 08:00 08/16/19 08:02 Magnesium Hydroxide (Milk Of Magnesia) 30 ml DAILYPRN PRN PO CONSTIPATION 08/13/19 19:45 Miscellaneous (Unresolved Patient Own Med Order) SEE LABEL COMMENTS DAILY XX 08/14/19 09:00 08/14/19 04:53 DC Patient Own Medication (Patient'S Own Med) Norgestimate-Ethinyl Estradiol ([place]-Linyah) 1 tab DAILY PO 08/14/19 09:00 08/16/19 08:05 Trazodone HCl (Desyrel) 50 mg QHSP PRN PO INSOMNIA 08/13/19 19:45 08/15/19 23:42 Trimethoprim/ Sulfamethoxazole (Bactrim Ds, Septra Ds 160mg/ 800mg) 1 tab BID PO 08/14/19 09:00 08/16/19 08:02 Allergies Coded Allergies: No Known Allergies (Verified , 12/12/18) LESIA PRINGLE DO August 16, 2019 09:12
[2019-08-16] MEDS ORDERED: SERTRALINE HCL 25 MG TABLET PO ONE (11:00)
[2019-08-16] MEDS: cloNIDine 0.05MG PER 1/2 TABLET PO PRN (14:58)
[2019-08-16 15:35] VITALS: BP 144/85
[2019-08-16] MEDS: traZODone 50 MG TAB PO PRN (21:16)
[2019-08-16] MEDS: diphenhydrAMINE 50MG CAP PO PRN (23:35)
[2019-08-17 06:36] VITALS: BP 139/63
[2019-08-17] MEDS: BACTRIM 160MG/800MG DS TAB PO SCH ×2 (08:08→20:40)
[2019-08-17] MEDS: SERTRALINE HCL 25 MG TABLET PO SCH (08:08)
[2019-08-17] MEDS: ESCITALOPRAM OXALATE 10 MG TAB (LEXAPRO) PO SCH (08:08)
[2019-08-17] MEDS: buPROPion (WELLBUTRIN SR) 100 MG SR TAB PO SCH (08:09)
[2019-08-17] MEDS: MONO LINYAH PO SCH (08:09)
--- NOTE | 2019-08-17 09:44 | MHIPNPDOC ---
[facility] Progress Note Progress Note Inpatient Progress Note Cristobal Noonan Female Date of : N/A Date of Service: 08/17/2019 History of Present Illness The patient, a 24-year-old woman presents after increasing depression especially after she had had her home medications increased. Interval History The patient was met with today. She reports she is feeling much more positive on the sertraline and the Wellbutrin and that she is fine tapering off the Lexapro. She reports improved mood, ability to focus, and tolerance of stressors. She reports that she has been attending the treatment better and feels great and wishes to be discharged tomorrow. Review Of Systems General: Denies fever or appetite changes Cardiovascular: Denies Chest pain or palpations GI: Denies Nausea, vomiting, or bowel changes Respiratory: Denies shortness of breath or cough Neuro: Denies dizziness, tremors Derm: Reports some rash that goes away with Benadryl around her clothes since s he has changed them, patient will monitor : Denies any dysuria or urinary problems MSK: Denies any muscle tightness or stiffness HEENT: Denies any vision changes or headaches Psychotherapy None on this visit. Vital Signs Reviewed. Mental Status Examination General: Well dressed with good hygiene Speech: Spontaneous and fluid Thought processes: Linear and logical MSK: Smooth and coordinated gait, no signs of tremors or involuntary orofacial movements Thought content: Future orientated Abstract reasoning, and computation: Intact Description of associations: Intact Description of abnormal or psychotic thoughts: Denies any suicidal or homicidal ideation. Denies any auditory or visual hallucinations. Does not appear to be responding to internal stimuli. Does not appear to be endorsing any bizarre or paranoid ideation. Judgment: fair Insight: fair Orientation: Alert and orientated 3 Cognition: Grossly normal Recent and remote memory: Intact Attention span and concentration: Intact Fund of knowledge: Adequate Mood: "okay" Affect: Euthymic with a full range Diagnoses Unspecified depressive disorder. MDD versus adjustment. Assessment and Plan Unspecified depressive disorder: Continue sertraline, bupropion and cross taper with Lexapro. Discussed the risks, benefits potential side effects with patient as well as alternatives. Disposition Discharge tomorrow once plan is created. Time Spent 15 minutes Friday Vital Signs Vital Signs Date Time Temp Pulse Resp B/P (MAP) Pulse Ox O2 Delivery O2 Flow Rate FiO2 08/17/19 06:36 98.6 91 12 139/63 (88) Room Air 08/15/19 06:41 97 Current Medications Current Medications Medications (Trade) Dose Ordered Sig/Juan Route PRN Reason Start Time Stop Time Status Last Admin Dose Admin Acetaminophen (Tylenol Tab) 650 mg Q6HP PRN PO HEADACHE or DISCOMFORT 08/13/19 19:45 Al Hydrox/Mg Hydrox/Simethicone (Mylanta) 30 ml Q4HP PRN PO HEARTBURN/INDIGESTION 08/13/19 19:45 Aripiprazole (AbiLIFY) 7.5 mg QAM PO 08/16/19 09:00 08/16/19 11:00 DC 08/16/19 08:02 Aripiprazole (AbiLIFY) 10 mg DAILY PO 08/14/19 09:00 08/15/19 11:23 DC 08/15/19 08:45 Bupropion HCl (Wellbutrin Sr) 100 mg DAILY PO 08/16/19 09:00 08/17/19 08:09 Bupropion HCl (Wellbutrin Xl) 150 mg DAILY PO 08/14/19 09:00 08/15/19 11:23 DC 08/15/19 08:45 Clonidine HCl (Catapres) 0.05 mg BIDP PRN PO anxiety 08/16/19 11:00 08/16/19 14:58 Diphenhydramine HCl (Benadryl) 50 mg Q4HP PRN PO ITCHING 08/16/19 23:15 08/16/19 23:35 Escitalopram Oxalate (Lexapro) 10 mg DAILY PO 08/14/19 09:00 08/17/19 08:08 Home Med (Med Rec Complete!) ASDIRECTED XX 08/13/19 14:15 08/13/19 14:18 DC Lorazepam (Ativan) 1 mg Q6HP PRN PO ANXIETY 08/15/19 11:45 08/17/19 08:00 DC 08/16/19 16:18 Magnesium Hydroxide (Milk Of Magnesia) 30 ml DAILYPRN PRN PO CONSTIPATION 08/13/19 19:45 Miscellaneous (Unresolved Patient Own Med Order) SEE LABEL COMMENTS DAILY XX 08/14/19 09:00 08/14/19 04:53 DC Patient Own Medication (Patient'S Own Med) Norgestimate-Ethinyl Estradiol (Person-Linyah) 1 tab DAILY PO 08/14/19 09:00 08/17/19 08:09 Sertraline HCl (Zoloft) 25 mg DAILY PO 08/17/19 09:00 08/17/19 08:08 Trazodone HCl (Desyrel) 50 mg QHSP PRN PO INSOMNIA 08/13/19 19:45 08/16/19 21:16 Trimethoprim/ Sulfamethoxazole (Bactrim Ds, Septra Ds 160mg/ 800mg) 1 tab BID PO 08/14/19 09:00 08/17/19 08:08 Allergies Coded Allergies: No Known Allergies (Verified , 12/12/18) LESIA PRINGLE DO August 17, 2019 09:44
[2019-08-17 12:41] VITALS: BP 124/82
[2019-08-17] MEDS: cloNIDine 0.05MG PER 1/2 TABLET PO PRN ×2 (12:41→20:53)
--- NOTE | 2019-08-17 13:53 | MHIPN ---
DATE: 08/15/2019 VITAL SIGNS: Blood pressure 125/76, pulse 104, temperature 97.2. This is a telemedicine video followup assessment. CHIEF COMPLAINT: Feels depresses. SUBJECTIVE: She is seen for followup, in the presence of staff. Feels depressed somewhat, and was not able to sleep much, had suicidal thoughts, no firm plans. She is less irritable overall. Says has contacted her mother, that went reasonably well. MENTAL STATUS EXAMINATION: Neat, cooperative. No agitation. No psychomotor retardation. She is coherent. Affect is restricted in range but broader than it has been. Has suicidal thoughts, no firm plans. No evidence of any psychosis. Cognition is grossly intact. Judgment and insight remain compromised. Is depressed, has suicidal thoughts, but has not planned to act on them. PLAN: Would suggest decreasing the bupropion and aripiprazole , as had both gone up the same time a few days ago. Would continue current observations. She is to be encouraged to participate in activities in the unit as tolerated. Further recommendations will be made depending on the clinical picture, when she sees the assigned psychiatrist tomorrow.
[2019-08-17 15:27] VITALS: BP 110/67
[2019-08-17] MEDS: traZODone 50 MG TAB PO PRN (22:25)
[2019-08-18 06:45] VITALS: BP 142/69
[2019-08-18] MEDS: diphenhydrAMINE 50MG CAP PO PRN (07:11)
[2019-08-18] MEDS: buPROPion (WELLBUTRIN SR) 100 MG SR TAB PO SCH (08:27)
[2019-08-18] MEDS: ESCITALOPRAM OXALATE 10 MG TAB (LEXAPRO) PO SCH (08:27)
[2019-08-18] MEDS: BACTRIM 160MG/800MG DS TAB PO SCH (08:27)
[2019-08-18] MEDS: SERTRALINE HCL 25 MG TABLET PO SCH (08:28)
[2019-08-18] MEDS: MONO LINYAH PO SCH (08:28)
--- NOTE | 2019-08-18 09:12 | MHDSPDOC ---
[facility] Discharge Summary Discharge Summary DATE OF ADMISSION: August 13, 2019 at 19:42 DATE OF DISCHARGE: 08/18/19 Discharge Cristobal Noonan Female Date of : N/A Date of Service: 08/18/2019 Diagnoses Unspecified depressive disorder. MDD versus adjustment. History of Present Illness The patient, a 24-year-old woman presents after increasing depression especially after she had had her home medications increased. Consultants Involved Hospitalist/PCP screening Treatment and Progress On The Unit The patient was admitted to the inpatient mental health unit and subsequently resumed on her home medications. There are some alterations made to her Abilify, however, they were ineffective and her depression remained. She was eventually changed to bupropion 100 mg and then cross tapered off of her Lexapro to sertraline with positive results. Her depression resolved well and she had no further issues, her suicidality resolved and she was subsequently ready for discharge with great improvement. She was discontinued on her Lexapro after she had left in progress with her cross taper. Discharge Assessment 24-year-old woman with likely major depressive disorder presents with depressive symptoms after medication increase, change on medication to appropriate augmentation regimen produces positive results. The patient at the time of discharge did not meet criteria for involuntary admission/extension due to having a normal mental status exam, fair insight into the situation, They are engaged in the discharge process, as well as being friendly and amenable in behavioral control and havent been engaging in any observed concerning behavior or ideation recently. They decline voluntary extension/admission at this time and must be discharged in good nick, as Im unable to make a case for holding the patient against their will. They may have historical risk factors of admissions and other interactions with psychiatry however, those are not modifiable from a clinical perspective. The patient will need to be discharged in good nick. Mental Status Examination General: Well dressed with good hygiene Speech: Spontaneous and fluid Thought processes: Linear and logical MSK: Smooth and coordinated gait, no signs of tremors or involuntary orofacial movements Thought content: Future orientated Abstract reasoning, and computation: Intact Description of associations: Intact Description of abnormal or psychotic thoughts: Denies any suicidal or homicidal ideation. Denies any auditory or visual hallucinations. Does not appear to be responding to internal stimuli. Does not appear to be endorsing any bizarre or paranoid ideation. Judgment: fair Insight: fair Orientation: Alert and orientated 3 Cognition: Grossly normal Recent and remote memory: Intact Attention span and concentration: Intact Fund of knowledge: Adequate Mood: "okay" Affect: Euthymic with a full range Follow Up The social work team worked during the predischarge meeting in order to evaluate for further issues of lethality address them fully before discharge. They worked on safety planning with the patient's family members in order to ensure that the patient will have a safe and effective discharge. Time Spent The amount of time spent in the coordination of care for this patient was approximately 45 minutes. Friday Vital Signs/I&Os Vital Signs Date Time Temp Pulse Resp B/P (MAP) Pulse Ox O2 Delivery O2 Flow Rate FiO2 08/18/19 06:45 97.6 89 14 142/69 (93) 08/17/19 06:36 Room Air 08/15/19 06:41 97 Medications Scheduled Bupropion Hcl (Bupropion HCl Sr) 100 Mg Tab.sr.12h, 100 MG PO DAILY for mood for 7 Days, #7 Sertraline HCl (Sertraline HCl) 25 Mg Tablet, 25 MG PO DAILY for mood for 7 Days, #7 Scheduled PRN Clonidine Hcl (Clonidine HCl) 0.1 Mg Tablet, 0.05 MG PO BIDP PRN for anxiety for 7 Days, #7 Allergies Coded Allergies: No Known Allergies (Verified , 12/12/18) LESIA PRINGLE DO August 18, 2019 09:12
[2019-08-18] MEDS ORDERED: CLONI1TA PO (10:51)
[2019-08-18] MEDS ORDERED: SERT25TA21 PO (10:51)
[2019-08-18] MEDS ORDERED: BUPR10TASR PO (10:51)
== END 2019-08-18 13:50 | disposition home or self-care (01) | DRG 753 ==
LOC: M ED 10:47 → M PSY 19:42 → M ED INP 19:42 → M ED 20:00 → M PSY 20:15
PROVIDERS: ADMIT Psychiatry & Neurology Addiction Medicine; ATTEND Psychiatry & Neurology Addiction Medicine
DX: F31.30 Bipolar disorder, current episode depressed, mild or moderate severity, unspecified (principal); R45.851 Suicidal ideations; Z56.0 Unemployment, unspecified; Z79.899 Other long term (current) drug therapy; L05.91 Pilonidal cyst without abscess; F43.20 Adjustment disorder, unspecified

== ENCOUNTER 2019-08-23 19:36 | Emergency (ER) | payer BC ==
[~2019-08-23] VITALS: Ht 182.9 cm; Wt 104.5 kg
[~2019-08-23 19:36] MED LIST changes: +ARIP1TAB PO; +BUPR10TASR PO; +BUPR150T3 PO; +CLONI1TA PO; +MONO0.25 PO; +SERT25TA21 PO; +SULF1TAB93 PO
[2019-08-23] MEDS ORDERED: LATU20TA (19:49)
[2019-08-23 20:47] LABS: HEMATOCRIT 43.3 % (36.0-47.0); HEMOGLOBIN 14.7 g/dl (12.0-15.5); MEAN CORPUSCULAR HEMOGLOBIN 30.9 pg (27.0-33.0); MEAN CORPUSCULAR HGB CONC 33.9 g/dl (32.0-36.5); PLATELET COUNT, AUTOMATED 215 10^3/uL (150-450); RED BLOOD COUNT 4.76 10^6/uL (4.00-5.40); WHITE BLOOD COUNT 9.7 10^3/uL (4.0-10.0)
[2019-08-23 20:55] LABS: HCG, SERUM QUALITATIVE NEGATIVE (NEGATIVE)
[2019-08-23 21:01] LABS: ACETAMINOPHEN LEVEL < 2.0 UG/ML (10.0-30.0); ALBUMIN 3.7 GM/DL (3.2-5.2); ALT/SGPT 50 U/L (12-78); BILIRUBIN,DIRECT < 0.1 MG/DL (0.0-0.2); BILIRUBIN,TOTAL 0.2 MG/DL (0.2-1.0); BLOOD UREA NITROGEN 11 MG/DL (7-18); CALCIUM LEVEL 9.2 MG/DL (8.5-10.1); CARBON DIOXIDE LEVEL 28 MEQ/L (21-32); CHLORIDE LEVEL 109 MEQ/L (98-107); CREATININE FOR GFR 1.01 MG/DL (0.55-1.30); ETHYL ALCOHOL (ETHANOL) < 0.003 % (0.000-0.010); GLOMERULAR FILTRATION RATE > 60.0 (>60); GLUCOSE, FASTING 79 MG/DL (70-100); SALICYLATE LEVEL 3.8 MG/DL (5.0-30.0); SODIUM LEVEL 143 MEQ/L (136-145); TOTAL PROTEIN 7.9 GM/DL (6.4-8.2)
[2019-08-23 21:06] LABS: AMPHETAMINES LEVEL URINE NEGATIVE (NEGATIVE); BARBITURATES URINE NEGATIVE (NEGATIVE); BENZODIAZEPINES URINE NEGATIVE (NEGATIVE); CANNABINOIDS URINE POSITIVE (NEGATIVE); COCAINE METABOLITE URINE NEGATIVE (NEGATIVE); METHADONE URINE NEGATIVE (NEGATIVE); OPIATES URINE NEGATIVE (NEGATIVE); PHENCYCLIDINE URINE NEGATIVE (NEGATIVE)
[2019-08-24 01:39] VITALS: BP 117/74
--- NOTE | 2019-08-25 08:14 | ECGEPIP ---
[facility] - ED Test Date: 2019-08-23 Pat Name: KRISTEN TORRE Department: Room: - Gender: Female National Accounts Sales: : 1995 Requested By: Kai Alegria Order Number: [id number] Reading MD: Kai Gilman Measurements Intervals Lind Rate: 76 P: 34 PA: 131 QRS: 75 QRSD: 101 T: 42 QT: 399 QTc: 449 Interpretive Statements SINUS RHYTHM INCOMPLETE RIGHT BUNDLE BRANCH BLOCK SIMILAR TO 04/09/19 Electronically Signed on 08-25-2019 8:13:57 EDT by Kai Gilman
== END 2019-08-24 01:44 ==
LOC: M ED 19:36
DX: R45.851 Suicidal ideations (principal); F33.9 Major depressive disorder, recurrent, unspecified; F90.9 Attention-deficit hyperactivity disorder, unspecified type; I45.19 Other right bundle-branch block; Z79.899 Other long term (current) drug therapy; Z88.8 Allergy status to other drugs, medicaments and biological substances; F12.20 Cannabis dependence, uncomplicated
CPT/HCPCS: 36415; 80048; 80076; 80307; 84443; 84703; 85027; 93005; 99285; G0480; U0002

== ENCOUNTER → 2019-11-10 | Outpatient (REF) | payer BC ==
[~2019-11-10] MED LIST changes: +BUPR-69 PO; +LATU20TA; +NICO21PAT TD; +SERT-141 PO
[2019-12-03 13:19] LABS: CHLAMYDIA DNA AMPLIFICATION NEGATIVE (NEGATIVE); GC DNA AMPLIFICATION NEGATIVE (NEGATIVE)
== END ==
LOC: M SFHCLERA 08:12
PROVIDERS: ATTEND Physician Assistant
DX: N92.1 Excessive and frequent menstruation with irregular cycle (principal); R31.9 Hematuria, unspecified; Z11.3 Encounter for screening for infections with a predominantly sexual mode of transmission

== ENCOUNTER 2019-12-01 11:35 | Inpatient (IN) | payer BC ==
[~2019-12-01] VITALS: Ht 182.9 cm; Wt 98.6 kg
[~2019-12-01 11:35] MED LIST changes: -BUPR-69 PO; -NICO21PAT TD; -SERT-141 PO
[2019-12-01] MEDS ORDERED: SERT-141 PO (11:51)
[2019-12-01] MEDS ORDERED: BUPR-69 PO (11:51)
[2019-12-01 12:58] LABS: HEMATOCRIT 40.4 % (36.0-47.0); MEAN CORPUSCULAR HEMOGLOBIN 30.3 pg (27.0-33.0); MEAN CORPUSCULAR HGB CONC 34.7 g/dl (32.0-36.5); MEAN CORPUSCULAR VOLUME 87.4 fl (80.0-96.0); PLATELET COUNT, AUTOMATED 187 10^3/uL (150-450); RED BLOOD COUNT 4.62 10^6/uL (4.00-5.40); WHITE BLOOD COUNT 8.2 10^3/uL (4.0-10.0)
[2019-12-01 13:23] LABS: AMPHETAMINES LEVEL URINE NEGATIVE (NEGATIVE); BARBITURATES URINE NEGATIVE (NEGATIVE); BENZODIAZEPINES URINE NEGATIVE (NEGATIVE); CANNABINOIDS URINE POSITIVE (NEGATIVE); COCAINE METABOLITE URINE NEGATIVE (NEGATIVE); METHADONE URINE NEGATIVE (NEGATIVE); OPIATES URINE NEGATIVE (NEGATIVE); PHENCYCLIDINE URINE NEGATIVE (NEGATIVE)
[2019-12-01 13:28] LABS: HCG, SERUM QUALITATIVE NEGATIVE (NEGATIVE)
[2019-12-01 13:36] LABS: ACETAMINOPHEN LEVEL < 2.0 UG/ML (10.0-30.0); ALBUMIN 3.3 GM/DL (3.2-5.2); ALT/SGPT 16 U/L (12-78); BILIRUBIN,DIRECT < 0.1 MG/DL (0.0-0.2); BILIRUBIN,TOTAL 0.2 MG/DL (0.2-1.0); BLOOD UREA NITROGEN 8 MG/DL (7-18); CALCIUM LEVEL 8.8 MG/DL (8.5-10.1); CARBON DIOXIDE LEVEL 29 MEQ/L (21-32); CHLORIDE LEVEL 108 MEQ/L (98-107); CREATININE FOR GFR 0.84 MG/DL (0.55-1.30); ETHYL ALCOHOL (ETHANOL) 0.003 % (0.000-0.010); GLOMERULAR FILTRATION RATE > 60.0 (>60); GLUCOSE, FASTING 82 MG/DL (70-100); POTASSIUM SERUM 3.8 MEQ/L (3.5-5.1); SALICYLATE LEVEL 2.1 MG/DL (5.0-30.0); SODIUM LEVEL 140 MEQ/L (136-145); TOTAL PROTEIN 6.9 GM/DL (6.4-8.2)
[2019-12-01] MEDS ORDERED: BUPR150T3 PO (14:30)
[2019-12-01] MEDS ORDERED: TRI-TAB PO (14:30)
[2019-12-01] MEDS ORDERED: MAALOX 30 ML SUSP *UDC PO PRN (15:15)
[2019-12-01] MEDS ORDERED: MOM 30ML SUSPENSION UDC PO PRN (15:15)
[2019-12-01] MEDS ORDERED: ACETAMINOPHEN TAB 650MG DOSE (2X325MG) PO PRN (15:15)
[2019-12-01 18:58] VITALS: BP 121/70
[2019-12-01] MEDS: traZODone 50 MG TAB PO PRN (20:23)
[2019-12-01] MEDS ORDERED: NICOTINE 21MG/24HR 1 EA TRANSDERMAL TD PRN (21:00)
[2019-12-02 06:51] VITALS: BP 144/72
[2019-12-02] MEDS: MONO LINYAH PO SCH (08:29)
[2019-12-02] MEDS: SERTRALINE HCL 50 MG TAB PO SCH (08:30)
[2019-12-02] MEDS: buPROPion **XL** TABLET 150MG (WELLBUTRIN XL) PO SCH (08:30)
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
--- NOTE | 2019-12-02 17:22 | HPEPDOC ---
General Date of Admission Dec 01, 2019 at 15:03 Date of Service: Dec 02, 2019 Chief Complaint The patient is a 24-year-old female admitted with a reason for visit of Unspecified Depressive Disorder. Source: Patient Exam Limitations: No limitations History of Present Illness patient presenting for behavioral therapy after suicide attempt. no concerns on ROS. no known medical conditions or surgeries Home Medications Scheduled Bupropion Hcl (Bupropion Xl) 150 Mg Tab.er.24h, 150 MG PO DAILY, (Reported) Norgestimate-Ethinyl Estradiol (Tri-Sprintec Tablet) 1 Each Tablet, 1 TAB PO DAILY, (Reported) Sertraline Hcl (Sertraline HCl) 50 Mg Tablet, 50 MG PO DAILY, (Reported) Allergies Coded Allergies: clonidine (Verified Allergy, Intermediate, Hives, 08/23/19) Past Medical History Medical History no known conditions Surgical History no surgeries Family History Significant Family History: Noncontributory Social History * Smoker: Denies Alcohol: Denies Drugs: denies Psychosocial History: Anxiety, Prior suicide attempt A-FIB/CHADSVASC A-FIB History Current/History of A-Fib/PAF?: No Current PO Anticoag Therapy: No Review of Systems Constitutional: Denies: Chills, Fever, Night Sweats Eyes: Denies: Pain, Vision change ENT: Denies: Head Aches, Ear Pain, Dysphagia Skin: Denies: Rash, Lesions, Breakdown Pulmonary: Denies: Dyspnea, Cough Cardiovascular: Denies: Chest Pain, Palpitations, Orthopnea, Paroxysmal Noc. Dyspnea, Lt Headedness Gastrointestinal: Denies: Nausea, Vomiting, Abdominal Pain, Diarrhea Genitourinary: Denies: Dysuria, Frequency, Incontinence, Retention Hematologic: Denies: Bruising, Bleeding Excessively Musculoskeletal: Denies: Neck Pain, Back Pain, Joint Pain, Muscle Pain, Spasms Neurological: Denies: Weakness, Numbness, Change in speech, Confusion Psych: Reports: Mood Normal; Denies: Depression, Memory Issues Physical Examination General Exam: Positive: Alert, No Acute Distress Eye Exam: Positive: PERRLA, Conjunctiva & lids normal, EOMI; Negative: Sclera icteric ENT Exam: Positive: Atraumatic, Mucous membr. moist/pink, Pharynx Normal Neck Exam: Positive: Supple; Negative: JVD, thyromegaly Chest Exam: Positive: Clear to auscultation, Normal air movement Heart Exam: Positive: Rate Normal, Regular Rhythm, Normal S1, Normal S2; Negative: Murmurs, Rubs Telemetry: Positive: No significant arrhythmia Abdomen Exam: Positive: Normal bowel sounds, Soft; Negative: Tenderness, Hepatospenomegaly Extremity Exam: Positive: Normal pulses; Negative: Clubbing, Cyanosis, Edema Skin Exam: Positive: Nl turgor and temperature; Negative: Breakdown, Lesion Neuro Exam: Positive: Normal Gait, Normal Speech, Cranial Nerves 3-12 NL, Reflexes 2+ Psych Exam: Positive: Mental status NL, Mood NL, Oriented x 3 Vital Signs Vital Signs Date Time Temp Pulse Resp B/P (MAP) Pulse Ox O2 Delivery O2 Flow Rate FiO2 12/02/19 10:45 Room Air 12/02/19 06:51 97.9 80 16 144/72 (96) 12/01/19 18:58 98 Assessment/Plan 1. Suicide attempt - behavior therapy per psych Plan / VTE VTE Prophylaxis Ordered?: No VTE Exclusion Mechanical Proph: Low Risk for VTE KELLY SILVERIO DO Dec 02, 2019 17:21
[2019-12-02 18:00] VITALS: BP 136/74
[2019-12-02] MEDS: traZODone 50 MG TAB PO PRN (22:10)
[2019-12-02 23:15] VITALS: BP 134/77
--- NOTE | 2019-12-03 00:38 | REPVR ---
PROCEDURE INFORMATION: Exam: XR Abdomen, 1 View Exam date and time: 12/02/2019 12:27 AM Age: 24 years old Clinical indication: Other: Abd pain TECHNIQUE: Imaging protocol: XR of the abdomen. Views: Frontal supine view of the abdomen. 1 View. COMPARISON: CR ABDOMEN 1 VIEW (KUB) 10/09/2015 12:37 PM FINDINGS: Gastrointestinal tract: Nonobstructive bowel gas pattern. Intraperitoneal space: No free air identified. No suspicious calcifications in the abdomen or pelvis. Bones/joints: Unremarkable. IMPRESSION: No acute radiographic abnormality of the abdomen. Electronically signed by: Rand Gillespie On 12/03/2019 00:38:18 AM
[2019-12-03 07:09] VITALS: BP 127/74
--- NOTE | 2019-12-03 07:56 | MHDSPDOC ---
[facility] Discharge Summary Discharge Summary DATE OF ADMISSION: Dec 01, 2019 at 15:03 DATE OF DISCHARGE:Dec 03, 2019 at 14:03 DISCHARGE DIAGNOSES: F32.9 Major depressive disorder, single episode, unspecified F43.10 Post-traumatic stress disorder, unspecified CONSULTANTS INVOLVED:[ None (basic hospitalist screening)] REASON FOR ADMISSION & TREATMENT AND PROGRESS ON THE UNIT : Cristobal was admitted to the inpatient mental health unit after reportedly making suicidal statements. She quickly redacted these and was observed. MEDICATIONS: Patient was started on her home medications of Wellbutrin 150 mg and Zoloft 50 mg. DISCHARGE ASSESSMENT[improved] Legal status considerations: The patient at the time of discharge did not meet criteria for involuntary admission/extension due to having a [normal] mental status exam, [fair] insight into the situation, They are engaged in the discharge process, as well as being friendly and amenable in behavioral control and havent been engaging in any observed concerning behavior or ideation recently. They decline voluntary extension/admission at this time and must be discharged in good nick, as Im unable to make a case for holding the patient against their will. They may have historical risk factors of admissions and other interactions with psychiatry however, those are not modifiable from a clinical perspective. The patient will need to be discharged in good nick. MENTAL STATUS EXAMINATION ON DISCHARGE: [General: Well dressed with good hygiene Speech: Spontaneous and fluid Thought processes: Linear and logical Thought content: Future orientated Abstract reasoning, and computation: Intact Description of associations: Intact Description of abnormal or psychotic thoughts:Denies any suicidal or homicidal ideation. Denies any auditory or visual hallucinations. Does not appear to be responding to internal stimuli. Does not appear to be endorsing any bizarre or paranoid ideation. Judgment: fair Insight: fair Orientation: Alert and orientated 3 Recent and remote memory: Intact Attention span and concentration: Intact Fund of knowledge: Adequate Mood: "okay" Affect: Euthymic with a full range] PLAN/FOLLOWUP ARRANGEMENTS: Follow up appointments made (PCP and MH in 5 days of D/C date) and safety plan completed. Safety Planning aspects completed prior to discharge [RN reviewed crisis hotline information and other aspects to empower patient to access care in interim before next appointment.] The amount of time spent in the coordination of care for this patient was approximately 30 minutes. Vital Signs/I&Os Vital Signs Date Time Temp Pulse Resp B/P (MAP) Pulse Ox O2 Delivery O2 Flow Rate FiO2 12/03/19 07:09 98.0 60 12 127/74 (91) Room Air 12/02/19 23:15 97 Medications Scheduled Bupropion Hcl (Bupropion Xl) 150 Mg Tab.er.24h, 150 MG PO DAILY, (Reported) Norgestimate-Ethinyl Estradiol (Tri-Sprintec Tablet) 1 Each Tablet, 1 TAB PO DAILY, (Reported) Sertraline Hcl (Sertraline HCl) 50 Mg Tablet, 50 MG PO DAILY, (Reported) Scheduled PRN Nicotine (Nicotine Patch) 21 Mg Patch.td24, 1 PATCH TD DAILYPRN PRN for NICOTINE WITHDRAWAL for 30 Days, #30 Allergies Coded Allergies: clonidine (Verified Allergy, Intermediate, Hives, 08/23/19) LESIA PRINGLE DO Dec 03, 2019 07:56
[2019-12-03] MEDS ORDERED: NICO21PAT TD (08:06)
[2019-12-03] MEDS: MONO LINYAH PO SCH (09:23)
[2019-12-03] MEDS: buPROPion **XL** TABLET 150MG (WELLBUTRIN XL) PO SCH (09:23)
[2019-12-03] MEDS: SERTRALINE HCL 50 MG TAB PO SCH (09:23)
== END 2019-12-03 14:03 | disposition home or self-care (01) | DRG 754 ==
LOC: M ED 11:35 → M ED INP 15:03 → M PSY 17:25
PROVIDERS: ADMIT Psychiatry & Neurology Addiction Medicine; ATTEND Psychiatry & Neurology Addiction Medicine
DX: F32.9 Major depressive disorder, single episode, unspecified (principal); F43.10 Post-traumatic stress disorder, unspecified; R45.851 Suicidal ideations; Z79.899 Other long term (current) drug therapy; Z88.8 Allergy status to other drugs, medicaments and biological substances

== ENCOUNTER 2020-04-09 18:20 | Emergency (ER) | payer BC ==
[~2020-04-09] VITALS: Ht 182.9 cm; Wt 100.0 kg
[~2020-04-09 18:20] MED LIST changes: +BUPR-69 PO; +NICO21PAT TD; +SERT-141 PO
[2020-04-09] MEDS ORDERED: TRAZ-252 PO (18:29)
[2020-04-09] MEDS ORDERED: LATU20TA PO (18:29)
[2020-04-09 19:38] LABS: BASO # 0.1 10^3/uL (0.0-0.2); BASO % 0.7 % (0.0-1.0); EOS # 0.3 10^3/uL (0.0-0.5); EOS % 3.5 % (0.0-3.0); HEMATOCRIT 42.3 % (36.0-47.0); HEMOGLOBIN 13.9 g/dl (12.0-15.5); LYMPH # 2.8 10^3/uL (1.5-5.0); LYMPH % 33.9 % (24.0-44.0); MEAN CORPUSCULAR HEMOGLOBIN 28.9 pg (27.0-33.0); MEAN CORPUSCULAR HGB CONC 32.9 g/dl (32.0-36.5); MEAN CORPUSCULAR VOLUME 87.9 fl (80.0-96.0); MONO # 0.6 10^3/uL (0.0-0.8); MONO % 7.1 % (0.0-5.0); NEUTROPHILS # 4.4 10^3/uL (1.5-8.5); NEUTROPHILS % 54.4 % (36.0-66.0); PLATELET COUNT, AUTOMATED 202 10^3/uL (150-450); RED BLOOD COUNT 4.81 10^6/uL (4.00-5.40); WHITE BLOOD COUNT 8.2 10^3/uL (4.0-10.0)
[2020-04-09] MEDS ORDERED: KETOROLAC 30 MG/ML 1ML VIAL IV ONE (20:00)
[2020-04-09] MEDS ORDERED: ONDANSETRON 4MG/2ML VIAL IV ONE (20:00)
[2020-04-09 20:04] LABS: ALBUMIN 3.5 GM/DL (3.2-5.2); ALT/SGPT 21 U/L (12-78); BILIRUBIN,DIRECT 0.1 MG/DL (0.0-0.2); BILIRUBIN,TOTAL 0.2 MG/DL (0.2-1.0); BLOOD UREA NITROGEN 10 MG/DL (7-18); CALCIUM LEVEL 8.9 MG/DL (8.5-10.1); CARBON DIOXIDE LEVEL 27 MEQ/L (21-32); CHLORIDE LEVEL 108 MEQ/L (98-107); CREATININE FOR GFR 0.89 MG/DL (0.55-1.30); GLOMERULAR FILTRATION RATE > 60.0 (>60); GLUCOSE, FASTING 75 MG/DL (70-100); LIPASE 151 U/L (73-393); SODIUM LEVEL 143 MEQ/L (136-145); TOTAL PROTEIN 7.3 GM/DL (6.4-8.2)
[2020-04-09 20:16] LABS: HCG, SERUM QUALITATIVE NEGATIVE (NEGATIVE)
--- NOTE | 2020-04-09 21:56 | REPVR ---
PROCEDURE INFORMATION: Exam: US Abdomen, Limited; Right Upper Quadrant Exam date and time: 04/09/2020 9:03 PM Age: 25 years old Clinical indication: Abdominal pain; Acute; Additional info: Ruq abd pain TECHNIQUE: Imaging protocol: US abdomen. Real time ultrasound with image documentation. Limited exam focused on the right upper quadrant. COMPARISON: No relevant prior studies available. FINDINGS: Liver: Normal. No masses. Gallbladder: Normal. No gallstones. There is no gallbladder wall thickening. Common bile duct: Normal. No stones. No dilation. Pancreas: The pancreas is not well visualized due to bowel gas. Right kidney: Normal. No mass. No hydronephrosis. IMPRESSION: Normal exam. Electronically signed by: Antoine Mason On 04/09/2020 21:56:09 PM
[2020-04-09] MEDS ORDERED: MORPHINE 4 MG/ML 1ML VIAL/SYRINGE (J2270) IV PRN (22:15)
--- NOTE | 2020-04-09 22:44 | REPVR ---
PROCEDURE INFORMATION: Exam: CT Abdomen And Pelvis With Contrast Exam date and time: 04/09/2020 10:24 PM Age: 25 years old Clinical indication: Abdominal pain; Localized; Right; Additional info: Right sided abd pain TECHNIQUE: Imaging protocol: Computed tomography of the abdomen and pelvis with intravenous contrast. Radiation optimization: All CT scans at this facility use at least one of these dose optimization techniques: automated exposure control; mA and/or kV adjustment per patient size (includes targeted exams where dose is matched to clinical indication); or iterative reconstruction. Contrast material: ISOVUE 370; Contrast volume: 100 ml; Contrast route: INTRAVENOUS (IV); COMPARISON: US PELVIC NON-OB COMPLETE 02/17/2019 2:56 PM FINDINGS: Liver: Normal. No mass. Gallbladder and bile ducts: Normal. No calcified stones. No ductal dilation. Pancreas: Normal. No ductal dilation. Spleen: Normal. No splenomegaly. Adrenal glands: Normal. No mass. Kidneys and ureters: Normal. No hydronephrosis. Stomach and bowel: Mild intraluminal fluid and mucosal enhancement are noted in the small bowel. No wall thickening or other inflammatory changes. No bowel obstruction. The stomach and colon are unremarkable. Appendix: No evidence of appendicitis. Intraperitoneal space: Unremarkable. No free air. No significant fluid collection. Vasculature: Unremarkable. No abdominal aortic aneurysm. Lymph nodes: Unremarkable. No enlarged lymph nodes. Urinary bladder: Unremarkable as visualized. Reproductive: Unremarkable as visualized. Bones/joints: Bilateral L5-S1 pars defects with grade 1 anterolisthesis and degenerative disc space narrowing. Soft tissues: Unremarkable. IMPRESSION: 1. Mild mucosal enhancement and intraluminal fluid in the small bowel is nonspecific but may indicate a viral enteritis. No obstruction. 2. Bilateral L5-S1 pars defects with grade 1 anterolisthesis and mild disc space narrowing. Electronically signed by: Antoine Mason On 04/09/2020 22:44:33 PM
[2020-04-09] MEDS ORDERED: ONDA4TAB6 PO (23:54)
[2020-04-10 00:07] VITALS: BP 119/72
== END 2020-04-10 00:08 | disposition home or self-care (01) ==
LOC: M ED 18:20
DX: K52.9 Noninfective gastroenteritis and colitis, unspecified (principal); Z79.899 Other long term (current) drug therapy; Z88.8 Allergy status to other drugs, medicaments and biological substances; F12.20 Cannabis dependence, uncomplicated
CPT/HCPCS: 74177; 76705; 80048; 80076; 81001; 83690; 84703; 85025; 96374; 96375; 99284; J1885; J2270; J2405

== ENCOUNTER → 2020-06-07 | Outpatient (CLI) | payer BC ==
[~2020-06-07] MED LIST changes: -BUPR150T3 PO; +BUPR150T4 PO; +ESCI10TA16 PO; -ESCI10TA2 PO; +LATU20TA PO; +ONDA4TAB6 PO
[2020-06-07 16:50] LABS: HIV 1&2 SCREEN CENTAUR NEGATIVE (NEGATIVE)
[2020-06-09 07:10] LABS: HSV TYPE I IgG SPECIFIC <0.91 index (0.00-0.90); HSV TYPE II IgG SPECIFIC <0.91 index (0.00-0.90)
== END ==
LOC: M WUC 13:15
PROVIDERS: ATTEND Physician Assistant
DX: R30.0 Dysuria (principal)

== ENCOUNTER 2021-09-29 07:41 | Emergency (ER) | payer BC, OTHER ==
[~2021-09-29] VITALS: Ht 182.9 cm; Wt 100.7 kg
[~2021-09-29 07:41] MED LIST changes: +ARIP10TA32 PO; -ARIP1TAB PO; +BACTDSTA PO; +BUPR150T12 PO; -BUPR150T4 PO; -SULF1TAB93 PO
[2021-09-29] MEDS ORDERED: LIDOCAINE 2% MDV 20ML VIAL SC ONE (08:50)
[2021-09-29] MEDS ORDERED: NORCO, ANEXSIA 5/325MG TABLET (HYDROcodone/ACETAMINOPHEN) PO ONE (09:20)
[2021-09-29] MEDS ORDERED: BACTRIM 160MG/800MG DS TAB PO ONE (09:20)
[2021-09-29] MEDS ORDERED: SULF1TAB23 PO (09:21)
[2021-09-29 09:32] VITALS: BP 107/62
== END 2021-09-29 09:34 | disposition home or self-care (01) ==
LOC: M ED 07:41
DX: L02.31 Cutaneous abscess of buttock (principal); F33.9 Major depressive disorder, recurrent, unspecified; F41.9 Anxiety disorder, unspecified; F90.9 Attention-deficit hyperactivity disorder, unspecified type; Z86.16 Personal history of COVID-19; Z88.8 Allergy status to other drugs, medicaments and biological substances; F17.210 Nicotine dependence, cigarettes, uncomplicated

== ENCOUNTER 2022-06-17 09:52 | Day surgery (SDC) | payer OTHER, BC ==
[~2022-06-17] VITALS: Ht 182.9 cm; Wt 97.1 kg
[~2022-06-17 09:52] MED LIST changes: +LATU1TAB; +LIDOCAINE 2% 100MG/5ML SDV (FOR ANES.) As Ordered ONE; +MIDAZOLAM INJ 2MG/2ML VIAL As Ordered ONE; +MONO0.25; +ONDANSETRON 4MG 2ML VIAL As Ordered ONE; +SULF1TAB23 PO; +fentaNYL 100 MCG/2 ML INJECTION As Ordered ONE; +propofoL 200 MG/20 ML VIAL As Ordered ONE
[2022-06-17] MEDS ORDERED: LR 1,000 ML IV SCH ×2 (10:45→11:50)
[2022-06-17] MEDS ORDERED: CHLOROPROCAINE PRES. FREE 3% 20ML VIAL As Ordered ONE (10:53)
[2022-06-17] MEDS ORDERED: ACETAMINOPHEN 1000MG 100ML IV BAG As Ordered ONE (11:31)
[2022-06-17] MEDS ORDERED: ePHEDrine SULFATE 25 MG/5 ML(5MG/ML) SYRINGE As Ordered ONE (11:32)
[2022-06-17] MEDS ORDERED: oxyCODONE 5MG TAB PO PRN (11:50)
[2022-06-17] MEDS ORDERED: HYDROMORPHONE HCL 0.5 MG/ 0.5 ML SYRINGE IV PRN (11:50)
[2022-06-17] MEDS ORDERED: ONDANSETRON 4MG 2ML VIAL IV PRN (11:50)
[2022-06-17] MEDS ORDERED: fentaNYL 100 MCG/2 ML INJECTION IV PRN (11:50)
[2022-06-17] MEDS ORDERED: NORCO, ANEXSIA 5/325MG TABLET (HYDROcodone/ACETAMINOPHEN) PO PRN (12:05)
[2022-06-17 13:30] VITALS: BP 102/53
== END 2022-06-17 13:36 | disposition home or self-care (01) ==
LOC: M SDC 09:52
PROVIDERS: ATTEND Surgery
DX: L05.91 Pilonidal cyst without abscess (principal); F41.9 Anxiety disorder, unspecified; F32.A Depression, unspecified; Z79.899 Other long term (current) drug therapy; Z88.1 Allergy status to other antibiotic agents; F17.290 Nicotine dependence, other tobacco product, uncomplicated
CPT/HCPCS: 11770; 81025; 88304; J2250; J2405; J3010